=== PATIENT | female | born 1940 | race Caucasian/White ===

== ENCOUNTER → 2024-04-30 | Outpatient (CLI) | payer MEDICARE ==
--- NOTE | 2024-04-30 13:08 | US ---
EXAMINATION TYPE: US carotid duplex BILAT DATE OF EXAM: 04/30/2024 COMPARISON: NONE CLINICAL INDICATION: Female, 83 years old with history of I65.23 OCCLUSION AND STENOSIS; stenosis Additional History: I65.- Occlusion/stenosis of specified precerebral artery, specified laterality TECHNIQUE: Grayscale, color Doppler and spectral Doppler evaluation of the bilateral carotid systems and vertebral arteries.Indirect Doppler criteria was utilized. FINDINGS: EXAM MEASUREMENTS: RIGHT: Peak Systolic Velocity (PSV) cm/sec ----- Right CCA: 66.9 ----- Right ICA: 134 ----- Right ECA: 156 ICA/CCA ratio: 2.0 RIGHT: End Diastole cm/sec ----- Right CCA: 11.7 ----- Right ICA: 28.4 ----- Right ECA: 25.3 LEFT: Peak Systolic Velocity (PSV) cm/sec ----- Left CCA: 74.9 ----- Left ICA: 136 ----- Left ECA: 95.2 ICA/CCA ratio: 1.8 LEFT: End Diastole cm/sec ----- Left CCA: 0 ----- Left ICA: 28.4 ----- Left ECA: 0 VERTEBRALS (direction of flow): Right Vertebral: Antegrade Left Vertebral: Antegrade Rhythm: Normal PRODUCTION OPERATOR NOTES: Bilateral vessels dive deep. No significant stenosis seen IMPRESSION: Right: 50-69% stenosis of the carotid bifurcation. 50 to 69% stenosis=ICA PSV of 125 to 230 cm/s: ration 2.0 - 4.0: ICA EDV 40-100 cm/s. Left: 50-69% stenosis of the carotid bifurcation. 50 to 69% stenosis=ICA PSV of 125 to 230 cm/s: ration 2.0 - 4.0: ICA EDV 40-100 cm/s. Criteria for Assigning % of Stenosis / Diameter reduction (Estimation based on the indirect measurements of the internal carotid artery velocities (ICA PSV). 1. Normal (no stenosis)=ICA PSV < 125 cm/s: ratio < 2.0: ICA EDV<40 cm/s. 2. Less than 50% stenosis=ICA PSV < 125 cm/s: ratio < 2.0: ICA EDV<40 cm/s. 3. 50 to 69% stenosis=ICA PSV of 125 to 230 cm/s: ration 2.0 ? 4.0: ICA EDV 40-100 cm/s. 4. Greater than 70% stenosis to near occlusion= ICA PSV > 230 cm/s: ratio > 4.0: ICA EDV > 100 cm/s. 5. Near occlusion= ICA PSV velocities may be low or undetectable: variable ratio and ICA EDV. 6. Total occlusion=unable to detect flow. [facility], , 04/30/2024 1:06 PM
== END | disposition home or self-care (01) ==
LOC: RADUSWWP 12:04
DX: I65.23 Occlusion and stenosis of bilateral carotid arteries (principal)
CPT/HCPCS: 93880